=== PATIENT | female | born 1980 | race Caucasian/White ===

== ENCOUNTER 2018-01-03 15:59 | Outpatient (CLI) | payer BC ==
[2018-01-03 17:09] LABS: Hemoglobin 14.6 g/dL (12.0-16.0); Mean Corpuscular HGB CONC 34.3 g/dL (32.0-36.0); Mean Corpuscular Hemoglobin 33.1 pg (27.0-31.0); Mean Corpuscular Volume 96.4 fl (81.0-99.0); Mean Platelet Volume 7.9 fL (7.4-10.4); Platelet Count 241 thou/uL (130-400); RBC Distribution Width 11.7 % (11.5-14.5); Red Blood Cell (RBC) Count 4.42 mill/uL (4.20-5.40); White Blood Cell (WBC) Count 11.2 thou/uL (4.8-10.8)
[2018-01-03 17:13] LABS: Pregnancy Test - Urine (BHCG) Negative (Negative); Pregu Control Background? CLEAR/WHITE (CLR/WHITE); Pregu Control Bar Appear? YES (CONTROL BAR); Specific Gravity 1.024 (1.002-1.036)
== END 2018-01-03 16:00 | disposition home or self-care (01) ==
LOC: LABBT 15:59
PROVIDERS: ATTEND Orthopaedic Surgery
DX: Z01.812 Encounter for preprocedural laboratory examination (principal); N75.0 Cyst of Bartholin's gland
CPT/HCPCS: 81025; 85027; 86850; 86900; 86901

== ENCOUNTER 2018-01-04 09:54 | Day surgery (SDC) | payer BC ==
[2018-01-03 16:25] VITALS: BMI 21.9
[2018-01-04] MEDS ORDERED: Midazolam HCl 2 mg/2 ml Vial ONE ×2 (10:59→11:02)
[2018-01-04] MEDS ORDERED: Metoclopramide HCl 10 MG/2 ML VIAL ONE (11:00)
[2018-01-04] MEDS ORDERED: HYDROmorphone 0.5 MG/0.5 ML SYRINGE ONE (11:00)
[2018-01-04] MEDS ORDERED: Lidocaine 1% w/Epinephrine 1:200K 30 ML VIAL ONE (11:46)
--- NOTE | 2018-01-04 14:06 | OP ---
DATE OF PROCEDURE: 01/04/2018 PREOPERATIVE DIAGNOSES: Persistent left Bartholin cyst with multiple incision and drainage with history of recurrent Bartholin abscess and failed marsupialization. POSTOPERATIVE DIAGNOSES: Persistent left Bartholin cyst with multiple incision and drainage with history of recurrent Bartholin abscess and failed marsupialization. PROCEDURE: Left Bartholin cystectomy. SURGEON: Mirta Gallardo D.O. ELECTRICAL MECHANICAL TECHNICIAN: Jovanni Zhou D.O. COMPLICATIONS: None. ESTIMATED BLOOD LOSS: 30 mL URINARY OUTPUT: Approximately 30 mL of straight catheterization obtained. ANESTHESIA: General. SPECIMEN: Left Bartholin cyst. INDICATIONS FOR THE PROCEDURE: Ms. Suellen Ruiz is a 37-year-old with a history of a persistent left Bartholin cyst. She has had multiple incision and drainage for Bartholin abscess the past and has failed an outpatient marsupialization. The patient was counseled on options of repeat marsupialization in the operating room, continued observation or Bartholin cystectomy and preferred to have Bartholin cystectomy. She was appropriately consented and laboratory values were normal. She does not have current abscess based on exam pre-operatively. PROCEDURE IN DETAIL: The patient was brought to the operating room. She was placed under general anesthesia, placed in dorsal lithotomy position using candy cane stirrups. She was prepped and draped in the sterile fashion. An official timeout was performed. Lidocaine was injected on the medial aspect of the left Bartholin cyst superficially along the incision site. An incision was made using a scalpel just through the vaginal mucosa on the medial aspect of the cyst. The vaginal mucosa and skin was retracted using Allis clamps. The cyst wall was dissected free from the surrounding tissue using Metzenbaum scissors and blunt dissection until the entire cyst was . The proximal portion of the cyst bed required additional dissection, were completely removed. The site was hemostatic with use of the Bovie and required several interrupted sutures at the deepest layer of the cavity defect to create hemostasis. The defect was closed in 3 layers with interrupted and running suture of 3-0 Vicryl and hemostasis was achieved. There were no signs of developing hematoma. The patient was then placed back in supine position. She was extubated without difficulty. All counts were correct x2, and she was transferred to the PACU in hemodynamically stable condition. ANNA
== END 2018-01-04 15:01 | disposition home or self-care (01) ==
LOC: SDC 09:54
PROVIDERS: ATTEND Obstetrics & Gynecology
PROC: 0UBL0ZZ Excision of Vestibular Gland, Open Approach (ICD-10-PCS; principal; 2018-01-04)
DX: N75.0 Cyst of Bartholin's gland (principal); N75.1 Abscess of Bartholin's gland; F32.9 Major depressive disorder, single episode, unspecified; Z88.2 Allergy status to sulfonamides; Z88.8 Allergy status to other drugs, medicaments and biological substances; Z91.040 Latex allergy status; Z79.899 Other long term (current) drug therapy; Z98.890 Other specified postprocedural states
CPT/HCPCS: 87070; 87205; 88304; J0131; J1170; J2250; J2765

== ENCOUNTER 2018-05-03 11:03 | Outpatient (CLI) | payer BC ==
[2018-05-03 12:33] LABS: Hemoglobin 13.8 g/dL (12.0-16.0); Mean Corpuscular HGB CONC 34.1 g/dL (32.0-36.0); Mean Corpuscular Hemoglobin 32.6 pg (27.0-31.0); Mean Corpuscular Volume 95.7 fL (78.0-98.0); Mean Platelet Volume 8.1 fL (7.4-10.4); Platelet Count 218 thou/uL (130-400); RBC Distribution Width 11.5 % (11.5-14.5); Red Blood Cell (RBC) Count 4.24 mill/uL (4.20-5.40); White Blood Cell (WBC) Count 7.2 thou/uL (4.8-10.8)
[2018-05-03 12:42] LABS: BHCG - Serum Negative (NEGATIVE); Pregs Control Background? CLEAR/WHITE (CLR/WHITE); Pregs Control Bar Appear? YES (CONTROL BAR)
== END 2018-05-03 11:04 | disposition home or self-care (01) ==
LOC: LABBT 11:03
PROVIDERS: ATTEND Obstetrics & Gynecology
DX: Z01.812 Encounter for preprocedural laboratory examination (principal); N87.1 Moderate cervical dysplasia
CPT/HCPCS: 84703; 85027; 86850; 86900; 86901

== ENCOUNTER 2018-05-04 09:53 | Day surgery (SDC) | payer BC ==
[2018-05-03 11:29] VITALS: BMI 22.6
[2018-05-04] MEDS ORDERED: Fentanyl 100 MCG/2 ML VIAL ONE (11:32)
[2018-05-04] MEDS ORDERED: Midazolam HCl 2 mg/2 ml Vial ONE ×2 (11:32→11:57)
[2018-05-04] MEDS ORDERED: Lidocaine 1% w/Epinephrine 1:100K 30 ML VIAL ONE (11:45)
[2018-05-04] MEDS ORDERED: Ferric Subsulfate 8 ML BOT ONE (11:45)
[2018-05-04] MEDS ORDERED: Dexamethasone 20 MG/5 ML VIAL ONE (13:26)
[2018-05-04] MEDS ORDERED: ePHEDrine/0.9% NaCl/PF SYRINGE 50 mg/10 ml ONE (13:26)
[2018-05-04] MEDS ORDERED: Ketorolac Tromethamine 30 MG/ML VIAL ONE (13:26)
[2018-05-04] MEDS ORDERED: Lidocaine 1% PF 5 ML VIAL ONE (13:26)
[2018-05-04] MEDS ORDERED: PROPOFOL 200 MG/20 ML VIAL ONE (13:26)
[2018-05-04] MEDS ORDERED: Ondansetron HCl/PF 4 MG/2 ML Vial ONE (13:26)
--- NOTE | 2018-05-04 14:01 | OP ---
DATE OF PROCEDURE: 05/04/2018 PREOPERATIVE DIAGNOSES: Cervical intraepithelial neoplasia 2-3 on endocervical curettage. POSTOPERATIVE DIAGNOSES: Cervical intraepithelial neoplasia 2-3 on endocervical curettage. PROCEDURE: Cervical conization with an endocervical curettage. SURGEON: Mirta Gallardo D.O. COMPLICATIONS: None. ESTIMATED BLOOD LOSS: 25 mL. URINE OUTPUT: 50 mL. IV FLUIDS: 650 mL. ANESTHESIA: General. SPECIMENS: Cervical conization with an endocervical curettage. INDICATIONS FOR THE PROCEDURE: Ms. Suellen Ruiz is a 37-year-old who underwent a colposcopy and found to have cervical intraepithelial neoplasia 2-3 on endocervical curettage. She was counseled on her treatment options and elected to have a cervical conization in the operating room under anesthesia. PROCEDURE IN DETAIL: The patient was brought to the operating room and she was placed under general anesthesia. The patient was placed in dorsal lithotomy position using Jensen stirrups. She was prepped and draped in a sterile fashion. Straight cath was performed. An official timeout was performed. A weighted speculum was placed in the posterior aspect of vagina. Anterior aspect of vagina was retracted using a right-angle retractor and the cervix was grasped using a single tooth tenaculum. Two hemostatic sutures were placed at 3 and 9 o'clock. The cervix was sequentially injected using lidocaine with epinephrine in a circumferential fashion. Lugol's was placed on the ectocervix. There was no abnormal area with lack of uptake noted. A cervical conization was performed with an angled knife performing in a circumferential fashion and the specimen was removed and tagged at the 12 o'clock position. An endocervical curettage was then performed. The bed of the conization was coagulated using bipolar cautery and Monsel's was placed for hemostasis. The stay sutures were tied together to allow for compression for hemostasis. All instruments were removed from the vagina. The patient was placed back in supine position. She was extubated without difficulty. All counts were correct x2. She will be transferred to the PACU in hemodynamically stable condition. ANNA
== END 2018-05-04 14:57 | disposition home or self-care (01) ==
LOC: SDC 09:53
PROVIDERS: ATTEND Obstetrics & Gynecology
PROC: 0UBC7ZX Excision of Cervix, Via Natural or Artificial Opening, Diagnostic (ICD-10-PCS; principal; 2018-05-04)
DX: D06.9 Carcinoma in situ of cervix, unspecified (principal); F32.9 Major depressive disorder, single episode, unspecified; Z87.891 Personal history of nicotine dependence; Z88.1 Allergy status to other antibiotic agents; Z91.040 Latex allergy status; Z79.899 Other long term (current) drug therapy
CPT/HCPCS: 88305; 88307; J1100; J1885; J2001; J2250; J2405; J2704; J3010